=== PATIENT | female | born 1990 | race Caucasian/White ===

== ENCOUNTER 2019-05-07 16:37 | Outpatient (CLI) | payer BC ==
[2019-05-07 20:49] LABS: ADD UMIC YES; UR ASCORBIC ACID NEGATIVE (NEGATIVE); UR BACTERIA FEW /HPF (NONE SEEN); UR BILIRUBIN (Dip) NEGATIVE (NEGATIVE); UR BLOOD (Dip) NEGATIVE (NEGATIVE); UR CLARITY SLIGHTLY CLOUDY (CLEAR); UR COLOR YELLOW (YELLOW); UR GLUCOSE (Dip) NEGATIVE (NEGATIVE); UR KETONES (Dip) 2+ mg/dL (NEGATIVE); UR LEUKOCYTE ESTERASE (Dip) 2+ Leu/ul (NEGATIVE); UR MUCUS FEW /HPF (NONE SEEN); UR NITRITE (Dip) NEGATIVE (NEGATIVE); UR RBC 2 /HPF (0-5); UR SPECIFIC GRAVITY (Dip) 1.018 (1.003-1.030); UR SQUAMOUS EPITHELIAL CELL FEW /HPF (FEW); UR TOTAL PROTEIN (Dip) NEGATIVE (NEGATIVE); UR UROBILINOGEN (Dip) NEGATIVE (NEGATIVE); UR WBC 21 /HPF (0-5)
== END 2019-05-07 21:50 | disposition home or self-care (01) ==
LOC: OBT 16:37 → L-D 16:40 → OBT 21:50
DX: O26.893 Other specified pregnancy related conditions, third trimester (principal); Z3A.39 39 weeks gestation of pregnancy; R10.9 Unspecified abdominal pain
CPT/HCPCS: 76815; 76818; 81001

== ENCOUNTER 2019-05-14 16:09 | Outpatient (CLI) | payer BC | END 2019-05-14 20:15 | disposition home or self-care (01) | LOC: OBT 16:09 → L-D 16:10 → OBT 20:15 | DX: O48.0 Post-term pregnancy (principal); O41.03X0 Oligohydramnios, third trimester, not applicable or unspecified; Z3A.40 40 weeks gestation of pregnancy | CPT/HCPCS: 76815; 76818 ==